=== PATIENT | female | born 1980 | race Hispanic/Latino ===

== ENCOUNTER 2017-04-30 16:00 | Emergency (ER) | payer SELFPAY ==
[~2017-04-30] VITALS: Ht 160 cm; Wt 77.1 kg
[2017-04-30 18:00] LABS: INFLUENZAE A&B ANTIGEN (RAPID) POSITIVE FLU A (NEGATIVE); STREPTOCOCCUS GRP A ANTIGEN POSITIVE (NEGATIVE)
--- NOTE | 2017-04-30 18:36 | Diagnostic Imaging Report ---
EXAMINATION: Chest, CHEST 2 VIEWS INDICATION: Chest pain COMPARISON: None FINDINGS: LINES: None. Heart: Normal cardiac silhouette. Vascular: The pulmonary vasculature is within normal limits. Mediastinum: No mediastinal, hilar, or axillary mass or lymphadenopathy. Lungs: No parenchymal mass. No focal consolidation. Pleura: No pleural effusion. No pneumothorax. Bones: No acute osseous abnormality. Soft tissues: Normal. Impression: No acute radiographic abnormality. Signed by: Dr. Jay Nicole M.D. on 04/30/2017 6:32 PM
--- NOTE | 2017-04-30 18:37 | Diagnostic Imaging Report ---
History: Fall, pain Comparison studies:None Technique: Axial images were obtained to the vertex and maxillofacial region. Coronal and sagittal images reconstructed from the axial data. Intravenous contrast: None Findings: Scalp/skull: No abnormalities. No fractures, blastic or lytic lesions. Extra-axial spaces: No masses. No fluid collections. Brain sulci: Appropriate for age. Ventricles: Normal in size and configuration. No hydrocephalus. Parenchyma: No abnormal densities. No masses, hemorrhage, acute or chronic cortical vascular insults. Sellar/suprasellar region: No abnormalities Craniocervical junction: Cerebellar tonsils 9mm below the foramen magnum with mild mass effect over the craniocervical junction. Maxillofacial CT: Soft tissues: No abnormalities. Bones: No fractures or bone abnormalities. Orbits: Globes: Intact Extra or intraconal abnormalities: None. Paranasal sinuses: Clear Incidental findings: None Impression: Head CT: 1. No acute abnormality 2. Cerebellar tonsilar ectopia. Maxillofacial CT: 1. Normal CT face Signed by: DR Mark Rowley M.D. on 04/30/2017 6:34 PM
[2017-04-30 18:46] VITALS: BP 140/72
[2017-05-01] MEDS ORDERED: LIDOCAINE VISC 2% SOLN 15 ML UDC ONE (05:10)
== END 2017-04-30 18:57 | disposition home or self-care (01) ==
LOC: ER 16:00
DX: R55 Syncope and collapse (principal)
CPT/HCPCS: 70450; 70486; 71046; 81025; 83518; 87400; 93005; 99284